=== PATIENT | male | born 1965 | race American Indian/Alaskan Native ===

== ENCOUNTER 2020-10-13 17:59 | Emergency (ER) | payer OTHER ==
[~2020-10-13] VITALS: Ht 182.9 cm; Wt 90.7 kg
== END 2020-10-13 20:06 | disposition home or self-care (01) ==
LOC: ER 17:59
DX: M79.671 Pain in right foot (principal); Z88.5 Allergy status to narcotic agent; Z88.6 Allergy status to analgesic agent
CPT/HCPCS: 73000; 73630; 99283-25